=== PATIENT | male | born 1970 | race African-American/Black ===

== ENCOUNTER 2016-08-27 08:57 | Inpatient (IN) | payer OTHER ==
[2016-08-27 10:20] VITALS: BMI 29.7
--- NOTE | 2016-08-27 11:48 | HP ---
CIWA Score - CIWA Score Nausea/Vomitin-No Nausea/No Vomiting Muscle Tremors: 4-Moderate,w/Arms Extend Anxiety: 4-Mod. Anxious/Guarded Agitation: 4-Moderately Restless Paroxysmal Sweats: 1-Minimal Palms Moist Orientation: 0-Oriented Tacttile Disturbances: 3-Moderate Itch/Numb/Burn Auditory Disturbances: 0-None Visual Disturbances: 0-None Headache: 0-None Present CIWA-Ar Total Score: 16 Admission ROS BHS - HPI Chief Complaint: DETOX TX FOR ALCOHOL DEPENDENCE Allergies/Adverse Reactions: Allergies Allergy/AdvReac Type Severity Reaction Status Date / Time No Known Allergies Allergy Verified 08/27/16 11:12 History of Present Illness: 46 Y/O AA/MALE WITH A HX OF ALCOHOL,COCAINE AND MARIJUANA DEPENDENCE SEEKING DETOX TX Exam Limitations: No Limitations - Ebola screening Have you traveled outside of the country in the last 21 days: No Have you had contact with anyone from an Ebola affected area: No Have you been sick,other than usual withdrawal symptoms: No - Review of Systems Constitutional: Chills, Loss of Appetite, Night Sweats, Unintentional Wgt. Loss (LOST 20 - 25 LBS) EENT: reports: Blurred Vision, Tearing, Nose Congestion, Dental Problems ( MISSING TEETH) Respiratory: reports: No Symptoms reported Cardiac: reports: Lightheadedness GI: reports: Diarrhea, Nausea, Poor Appetite, Poor Fluid Intake, Vomiting : reports: No Symptoms Reported Musculoskeletal: reports: Back Pain, Joint Pain, Muscle Pain Integumentary: reports: Rash (FOOT RASH) Neuro: reports: Unsteady Gait Endocrine: reports: No Symptoms Reported Hematology: reports: No Symptoms Reported Psychiatric: reports: Orientated x3, Anxious, Depressed (WAS O MED BUT STOPPED) Other Systems: Reviewed and Negative Patient History - Patient Medical History Hx Anemia: No Hx Asthma: No Hx Chronic Obstructive Pulmonary Disease (COPD): No Hx Cardiac Disorders: No Hx Hypertension: No Hx Hypercholesterolemia: No HX Cerebrovascular Accident: No Hx Seizures: No Hx Diabetes: No Hx Gastrointestinal Disorders: No Hx Genitourinary Disorders: No Hx Sexually Transmitted Disorders: Yes (gonorrhea) Hx Renal Disease (ESRD): No Hx Thyroid Disease: No Hx Human Immunodeficiency Virus (HIV): No (NEGATIVE HX) Hx Depression: Yes (WAS ON MED--TRAZODONE AND REMERON) Hx Suicide Attempt: No (DENIES) Hx Schizophrenia: Yes - Patient Surgical History Past Surgical History: No Hx Neurologic Surgery: No Hx Cataract Extraction: No Hx Cardiac Surgery: No Hx Lung Surgery: No Hx Breast Surgery: No Hx Breast Biopsy: No Hx Abdominal Surgery: No Hx Appendectomy: No Hx Cholecystectomy: No Hx Genitourinary Surgery: No Hx Orthopedic Surgery: No Anesthesia Reaction: No - PPD History Previous Implant?: Yes Documented Results: Negative w/o proof Implanted On Prior [facility] Admission?: No PPD to be Administered?: Yes - Reproductive History Patient is a Female of Child Bearing Age (11 -55 yrs old): No (MALE) - Smoking Cessation Smoking history: Current every day smoker Have you smoked in the past 12 months: Yes Aproximately how many cigarettes per day: 10 Hx Chewing Tobacco Use: No Initiated information on smoking cessation: Yes 'Breaking Loose' booklet given: 08/27/16 - Substance & Tx. History Hx Alcohol Use: Yes (BEER) Hx Substance Use: Yes (CRACK/MARIJUANA) Substance Use Type: Alcohol, Cocaine, Marijuana Hx Substance Use Treatment: Yes ([facility] DETOX) - Substances Abused Crack Route: Smoking Frequency: Daily Amount used: 17 Date of Last Use: 08/27/16 Alcohol-beer Route: Oral Frequency: Daily Amount used: 2-6 pks. Age of first use: 15 Date of Last Use: 08/26/16 Family Disease History - Family Disease History Family Disease History: Diabetes: Mother (HTN), Other: Father (HEROIN ADDICTION- ), Mother Admission Physical Exam BHS - Vital Signs Vital Signs: Vital Signs - 24 hr 08/27/16 10:18 Temperature 97 F L Pulse Rate 84 Respiratory 19 Rate Blood Pressure 131/82 - Physical General Appearance: Yes: Moderate Distress, Irritable, Anxious HEENTM: Yes: EOMI, Normocephalic, PATRICIA, Pharynx Normal Respiratory: Yes: Chest Non-Tender, Lungs Clear, Normal Breath Sounds, No Respiratory Distress Neck: Yes: Supple, Trachea in good position Breast: Yes: Breast Exam Deferred Cardiology: Yes: Regular Rhythm, Regular Rate, S1, S2 Abdominal: Yes: Normal Bowel Sounds, Non Tender, Soft Genitourinary: Yes: Other (N/C) Back: Yes: Within Normal Limits Musculoskeletal: Yes: full range of Motion, Gait Steady Neurological: Yes: automat watcher II-XII NML intact, Fully Oriented, Alert, Motor Strength 5/5 Integumentary: Yes: Dry, Warm Lymphatic: Yes: Within Normal Limits - Diagnostic (1) Alcohol dependence with uncomplicated withdrawal Current Visit: Yes Status: Acute (2) Cocaine dependence, uncomplicated Current Visit: Yes Status: Acute Cleared for Admission [facility] - Detox or Rehab [facility] Level of Care: Medically Managed Detox Regimen/Protocol: Librium [facility] Breath Alcohol Content Breath Alcohol Content: 0 Urine Drug Screen - Results Drug Screen Negative: No Urine Drug Screen Results: CHILO-Cocaine
[2016-08-27] MEDS ORDERED: MENTHOL/PHENOL 1 EACH UD MM PRN (12:00)
[2016-08-27] MEDS ORDERED: MAG HYDROX/AL HYDROX/SIMETH 30 ML UNIT-DOSE CUP PO PRN (12:00)
[2016-08-27] MEDS ORDERED: MAGNESIUM CITRATE 300 ML BOTTLE PO PRN (12:00)
[2016-08-27] MEDS ORDERED: chlordiazePOXIDE HCL 25 MG CAPSULE PO PRN (12:00)
[2016-08-27] MEDS ORDERED: MAGNESIUM HYDROX 2400MG/30ML ORAL SUSPENSION 30 ML CUP PO PRN (12:00)
[2016-08-27] MEDS ORDERED: ACETAMINOPHEN 325 MG TABLET (FP) PO PRN (12:00)
[2016-08-27] MEDS ORDERED: diphenhydrAMINE HCL 50 MG CAPSULE PO PRN (12:00)
[2016-08-27] MEDS ORDERED: IBUPROFEN 400 MG TABLET (FP) PO PRN (12:00)
[2016-08-27] MEDS ORDERED: LOPERAMIDE HCL 2 MG CAPSULE PO PRN (12:00)
[2016-08-27] MEDS ORDERED: guaiFENesin/D-METHORPHAN HB 10 ML UNIT-DOSE CUPS PO PRN (12:00)
[2016-08-27] MEDS ORDERED: hydrOXYzine PAMOATE 25 MG CAPSULE (FP) PO PRN (12:00)
[2016-08-27] MEDS ORDERED: P-EPHED 60MG/TRIPROLIDI 2.5MG TABLET PO PRN (12:00)
[2016-08-27] MEDS: NICOTINE 14 MG/24 HOURS TOPICAL PATCH TD SCH (13:33)
--- NOTE | 2016-08-27 15:43 | EKG ---
Test Reason : Blood Pressure : / mmHG Vent. Rate : 072 BPM Atrial Rate : 072 BPM P-R Int : 120 ms QRS Dur : 086 ms QT Int : 396 ms P-R-T Axes : 072 053 037 degrees QTc Int : 433 ms NORMAL SINUS RHYTHM POSSIBLE LEFT ATRIAL ENLARGEMENT BORDERLINE ECG NO PREVIOUS ECGS AVAILABLE Confirmed by HUANG RIVERA, NATHAN ([id number]) on 08/27/2016 3:43:22 PM Referred By: Confirmed By:NATHAN ENCINAS MD
[2016-08-27 17:33] LABS: URINE APPEARANCE CLEAR; URINE BILIRUBIN NEGATIVE (NEGATIVE); URINE BLOOD NEGATIVE (NEGATIVE); URINE COLOR YELLOW; URINE GLUCOSE (UA) NEGATIVE (NEGATIVE); URINE KETONE TRACE (NEGATIVE); URINE LEUK ESTERASE NEGATIVE (NEGATIVE); URINE NITRITE NEGATIVE (NEGATIVE); URINE PROTEIN NEGATIVE (NEGATIVE); URINE UROBILINOGEN 4.0 E.U/dl E.U./dl (0.2-1.0)
[2016-08-27] MEDS: chlordiazePOXIDE HCL 25 MG CAPSULE PO SCH ×2 (17:40→22:36)
[2016-08-27] MEDS: NICOTINE POLACRILEX 2 MG GUM BUC PRN ×2 (17:42→22:31)
[2016-08-27] MEDS: THIAMINE HCL 100 MG TABLET (FP) PO SCH (22:30)
[2016-08-28] MEDS: chlordiazePOXIDE HCL 25 MG CAPSULE PO SCH ×4 (06:10→22:42)
[2016-08-28] MEDS: NICOTINE POLACRILEX 2 MG GUM BUC PRN ×4 (06:14→22:45)
[2016-08-28 09:18] LABS: HIV 1 & 2 AB NEGATIVE; HIV 1 AGp24 NEGATIVE
[2016-08-28 10:11] LABS: ALBUMIN 4.1 g/dl (3.4-5.0); BILIRUBIN,TOTAL 0.6 mg/dL (0.2-1.0); COCKROFT - GAULT 89.77; CREATININE 1.5 mg/dL (0.7-1.3); TOT PROT 7.4 g/dl (6.4-8.2)
[2016-08-28 10:14] LABS: MCH 33.1 pg (25.7-33.7); MEAN CELL VOLUME 97.5 fl (80-96); MEAN PLT VOLUME 9.9 fl (7.5-11.1); PLATELET COUNT 215 K/MM3 (134-434); RDW 13.3 % (11.9-15.9); WHITE BLOOD COUNT 6.6 K/mm3 (4.0-10.0)
[2016-08-28] MEDS: PRENATAL VITAMINS W/ FOLIC ACID TABLET (FP) PO SCH (10:25)
[2016-08-28 10:28] LABS: SICKLE CELL SCREEN NEGATIVE (NEGATIVE)
[2016-08-28] MEDS: NICOTINE 14 MG/24 HOURS TOPICAL PATCH TD SCH (10:28)
--- NOTE | 2016-08-28 11:53 | PN ---
[facility] CIWA - CIWA Score Nausea/Vomitin-No Nausea/No Vomiting Muscle Tremors: 4-Moderate,w/Arms Extend Anxiety: 4-Mod. Anxious/Guarded Agitation: 4-Moderately Restless Paroxysmal Sweats: 1-Minimal Palms Moist Orientation: 0-Oriented Tacttile Disturbances: 3-Moderate Itch/Numb/Burn Auditory Disturbances: 0-None Visual Disturbances: 0-None Headache: 0-None Present CIWA-Ar Total Score: 16 BHS Progress Note (SOAP) Subjective: ANXIETY,SWEATS,TREMORS, INTERMITTENT SLEEP. Objective: 08/28/16 11:52 Vital Signs Temperature 96.6 F L 08/28/16 10:21 Pulse Rate 74 08/28/16 10:21 Respiratory Rate 18 08/28/16 10:21 Blood Pressure 141/94 08/28/16 10:21 O2 Sat by Pulse Oximetry (%) Laboratory Last Values WBC 6.6 K/mm3 (4.0-10.0) 08/28/16 06:00 RBC 4.74 M/mm3 (4.00-5.60) 08/28/16 06:00 Hgb 15.7 GM/dL (11.7-16.9) 08/28/16 06:00 Hct 46.2 % (35.4-49) 08/28/16 06:00 MCV 97.5 fl (80-96) H 08/28/16 06:00 MCHC 34.0 g/dl (32.0-35.9) 08/28/16 06:00 RDW 13.3 % (11.9-15.9) 08/28/16 06:00 Plt Count 215 K/MM3 (134-434) 08/28/16 06:00 MPV 9.9 fl (7.5-11.1) 08/28/16 06:00 Sickle Cell Screen Negative (NEGATIVE) 08/28/16 06:00 Sodium 142 mmol/L (136-145) 08/28/16 06:00 Potassium 3.9 mmol/L (3.5-5.1) 08/28/16 06:00 Chloride 108 mmol/L (98-107) H 08/28/16 06:00 Carbon Dioxide 26 mmol/L (21-32) 08/28/16 06:00 Anion Gap 8 (8-16) 08/28/16 06:00 BUN 12 mg/dL (7-18) 08/28/16 06:00 Creatinine 1.5 mg/dL (0.7-1.3) H 08/28/16 06:00 Creat Clearance w eGFR 50.61 (>60) 08/28/16 06:00 Random Glucose 86 mg/dL (74-106) 08/28/16 06:00 Calcium 9.0 mg/dL (8.5-10.1) 08/28/16 06:00 Total Bilirubin 0.6 mg/dL (0.2-1.0) 08/28/16 06:00 AST 24 U/L (15-37) 08/28/16 06:00 ALT 32 U/L (12-78) 08/28/16 06:00 Alkaline Phosphatase 80 U/L (45-117) 08/28/16 06:00 Total Protein 7.4 g/dl (6.4-8.2) 08/28/16 06:00 Albumin 4.1 g/dl (3.4-5.0) 08/28/16 06:00 Urine Color Yellow 08/27/16 15:00 Urine Appearance Clear 08/27/16 15:00 Urine pH 5.0 (5.0-8.0) 08/27/16 15:00 Ur Specific [place] 1.024 (1.001-1.035) 08/27/16 15:00 Urine Protein Negative (NEGATIVE) 08/27/16 15:00 Urine Glucose (UA) Negative (NEGATIVE) 08/27/16 15:00 Urine Ketones Trace (NEGATIVE) H 08/27/16 15:00 Urine Blood Negative (NEGATIVE) 08/27/16 15:00 Urine Nitrite Negative (NEGATIVE) 08/27/16 15:00 Urine Bilirubin Negative (NEGATIVE) 08/27/16 15:00 Urine Urobilinogen 4.0 e.u/dl E.U./dl (0.2-1.0) 08/27/16 15:00 Ur Leukocyte Esterase Negative (NEGATIVE) 08/27/16 15:00 HIV 1&2 Antibody Screen Negative 08/27/16 10:00 HIV P24 Antigen Negative 08/27/16 10:00 Assessment: 08/28/16 11:53 WITHDRAWAL SX Plan: CONTINUE DETOX
--- NOTE | 2016-08-28 14:06 | CONSULT ---
[facility] Psychiatric Consult - Data Date of interview: 08/28/16 Admission source: [facility] Identifying data: First admission to [facility] for this 46 y/o AA male seeking detox for alcohol,cocaine and cannabis dependence.Patient is single,a father of one,domiciled,unemployed and supported on Public Assistance. Substance Abuse History: - Smoking Cessation. Smoking history: Current every day smoker. Have you smoked in the past 12 months: Yes. Aproximately how many cigarettes per day: 10. Hx Chewing Tobacco Use: No. Initiated information on smoking cessation: Yes. 'Breaking Loose' booklet given: 08/27/16. - Substance & Tx. History. Hx Alcohol Use: Yes (BEER). Hx Substance Use: Yes (CRACK/ MARIJUANA). Substance Use Type: Alcohol, Cocaine, Marijuana. Hx Substance Use Treatment: Yes ([facility] DETOX). - Substances Abused. Crack. Route : Smoking. Frequency: Daily. Amount used: 17. Date of Last Use: 08/27/16. * * Alcohol-beer. Route: Oral. Frequency: Daily. Amount used: 2-6 pks. Age of first use: 15. Date of Last Use: 08/26/16. Confirmed by patient. Medical History: No medical problems reported.Noted history of past treatment for gonorrhea. Psychiatric History: Patient denies history of psychiatric hospitalizations.Diagnosed with insomnia and prescribed remeron/trazodone.Doses not recalled by the patient.Not a reliable historian due to a light sedated state.No report of OPD care.Mr Cantu denies history of suicide attempts. Physical/Sexual Abuse/Trauma History: Patient denies. Additional Comment: Urine Drug Screen Results: CHILO-Cocaine.Noted. Mental Status Exam - Mental Status Exam Alert and Oriented to: Time, Place, Person Cognitive Function: Good Patient Appearance: Well Groomed Mood: Withdrawn Affect: Mood Congruent Patient Behavior: Sedated (light sedation.), Fatigued Speech Pattern: Delayed, Slurred Voice Loudness: Normal Thought Process: Goal Oriented Thought Disorder: Not Present Hallucinations: Denies Suicidal Ideation: Denies Homicidal Ideation: Denies Insight/Judgement: Poor Sleep: Fair Appetite: Good Muscle strength/Tone: Normal Gait/Station: Normal (observed walking earlier) Psychiatric Findings - Problem List ([place] 1, 2,3) (1) Alcohol dependence with uncomplicated withdrawal Current Visit: Yes Status: Acute (2) Cocaine dependence, uncomplicated Current Visit: Yes Status: Acute (3) Nicotine dependence Current Visit: Yes Status: Acute (4) Insomnia Current Visit: Yes Status: Acute - Initial Treatment Plan Initial Treatment Plan: Psychoeducation.Detoxification.Trazodone 50 mg po hs.Patient is made aware of the risk of priapism.No prior history of adverse event from this medication,according to patient.Agreement (verbal) given for treatment with trazodone.Observation.Review of pharmacy claims : no activity.Reconciliation indicates no home medications.
[2016-08-28] MEDS ORDERED: traZODone HCL 50 MG TABLET (FP) PO SCH (22:00)
[2016-08-28] MEDS: THIAMINE HCL 100 MG TABLET (FP) PO SCH (22:42)
[2016-08-29] MEDS: chlordiazePOXIDE HCL 25 MG CAPSULE PO SCH ×2 (07:12→10:51)
[2016-08-29] MEDS: PRENATAL VITAMINS W/ FOLIC ACID TABLET (FP) PO SCH (10:51)
[2016-08-29] MEDS: NICOTINE 14 MG/24 HOURS TOPICAL PATCH TD SCH (10:51)
[2016-08-29] MEDS: NICOTINE POLACRILEX 2 MG GUM BUC PRN (10:52)
--- NOTE | 2016-08-29 16:16 | PN ---
S CIWA - CIWA Score Nausea/Vomitin Muscle Tremors: 3 Anxiety: 4-Mod. Anxious/Guarded Agitation: 3 Paroxysmal Sweats: 3 Orientation: 0-Oriented Tacttile Disturbances: 3-Moderate Itch/Numb/Burn Auditory Disturbances: 1-Very Mild Visual Disturbances: 0-None Headache: 0-None Present CIWA-Ar Total Score: 19 S Progress Note (SOAP) Subjective: Diarrhea, Body Aches, Stomach Cramping, Sweating. Objective: PT. A & O X 3, OBSERVED AMBULATING ON UNIT. 08/29/16 16:15 Vital Signs Temperature 96 F L 08/29/16 13:41 Pulse Rate 77 08/29/16 13:41 Respiratory Rate 20 08/29/16 13:41 Blood Pressure 140/86 08/29/16 13:41 O2 Sat by Pulse Oximetry (%) Laboratory Last Values WBC 6.6 K/mm3 (4.0-10.0) 08/28/16 06:00 RBC 4.74 M/mm3 (4.00-5.60) 08/28/16 06:00 Hgb 15.7 GM/dL (11.7-16.9) 08/28/16 06:00 Hct 46.2 % (35.4-49) 08/28/16 06:00 MCV 97.5 fl (80-96) H 08/28/16 06:00 MCHC 34.0 g/dl (32.0-35.9) 08/28/16 06:00 RDW 13.3 % (11.9-15.9) 08/28/16 06:00 Plt Count 215 K/MM3 (134-434) 08/28/16 06:00 MPV 9.9 fl (7.5-11.1) 08/28/16 06:00 Sickle Cell Screen Negative (NEGATIVE) 08/28/16 06:00 Sodium 142 mmol/L (136-145) 08/28/16 06:00 Potassium 3.9 mmol/L (3.5-5.1) 08/28/16 06:00 Chloride 108 mmol/L (98-107) H 08/28/16 06:00 Carbon Dioxide 26 mmol/L (21-32) 08/28/16 06:00 Anion Gap 8 (8-16) 08/28/16 06:00 BUN 12 mg/dL (7-18) 08/28/16 06:00 Creatinine 1.5 mg/dL (0.7-1.3) H 08/28/16 06:00 Creat Clearance w eGFR 50.61 (>60) 08/28/16 06:00 Random Glucose 86 mg/dL (74-106) 08/28/16 06:00 Calcium 9.0 mg/dL (8.5-10.1) 08/28/16 06:00 Total Bilirubin 0.6 mg/dL (0.2-1.0) 08/28/16 06:00 AST 24 U/L (15-37) 08/28/16 06:00 ALT 32 U/L (12-78) 08/28/16 06:00 Alkaline Phosphatase 80 U/L (45-117) 08/28/16 06:00 Total Protein 7.4 g/dl (6.4-8.2) 08/28/16 06:00 Albumin 4.1 g/dl (3.4-5.0) 08/28/16 06:00 Urine Color Yellow 08/27/16 15:00 Urine Appearance Clear 08/27/16 15:00 Urine pH 5.0 (5.0-8.0) 08/27/16 15:00 Ur Specific [place] 1.024 (1.001-1.035) 08/27/16 15:00 Urine Protein Negative (NEGATIVE) 08/27/16 15:00 Urine Glucose (UA) Negative (NEGATIVE) 08/27/16 15:00 Urine Ketones Trace (NEGATIVE) H 08/27/16 15:00 Urine Blood Negative (NEGATIVE) 08/27/16 15:00 Urine Nitrite Negative (NEGATIVE) 08/27/16 15:00 Urine Bilirubin Negative (NEGATIVE) 08/27/16 15:00 Urine Urobilinogen 4.0 e.u/dl E.U./dl (0.2-1.0) 08/27/16 15:00 Ur Leukocyte Esterase Negative (NEGATIVE) 08/27/16 15:00 RPR Titer Nonreactive (NONREACTIVE) 08/28/16 06:00 HIV 1&2 Antibody Screen Negative 08/27/16 10:00 HIV P24 Antigen Negative 08/27/16 10:00 LABS NOTED. Assessment: 08/29/16 16:16 WITHDRAWAL SYMPTOMS. Plan: CONTINUE DETOX. ADVISED PATIENT TO FOLLOW-UP WITH [facility] / REHAB MEDICAL PROVIDER AFTER DISCHARGE FROM DETOX FOR GENERAL MEDICAL ASSESSMENT AND FOR ABNORMAL ADMISSION LAB VALUES.
[2016-08-29] MEDS ORDERED: chlordiazePOXIDE 5 MG CAPSULE PO SCH (17:00)
[2016-08-29 18:06] VITALS: BP 115/75; PULSE 80; TEMP 96.8
--- NOTE | 2016-08-29 19:01 | PN ---
S Progress Note Note: patient did not want to complete treatment,signed release ama,did not want to wait
--- NOTE | 2016-08-29 19:05 | DS ---
[facility] Detox Discharge Summary Admission Date: 08/27/16 Discharge Date: 08/29/16 - History Present History: Alcohol Dependence, Cocaine Dependence Additional Comments: patient did not want to complete treatment,signed release ama,did not want to wait Pertinent Past History: nicotine dependence - Physical Exam Results Vital Signs: Vital Signs Temperature 96.8 F L 08/29/16 18:06 Pulse Rate 80 08/29/16 18:06 Respiratory Rate 20 08/29/16 18:06 Blood Pressure 115/75 08/29/16 18:06 O2 Sat by Pulse Oximetry (%) Pertinent Admission Physical Exam Findings: withdrawal symptom - Diagnosis (1) Alcohol dependence with uncomplicated withdrawal Current Visit: Yes Status: Acute (2) Cocaine dependence, uncomplicated Current Visit: Yes Status: Acute (3) Insomnia Current Visit: Yes Status: Acute (4) Nicotine dependence Current Visit: Yes Status: Acute - AMA Did Patient Leave Against Medical Advice: Yes
[2016-08-30] MEDS ORDERED: chlordiazePOXIDE HCL 10 MG CAPSULE PO SCH (17:00)
== END 2016-08-29 18:25 | disposition left against medical advice (07) | DRG 770 ==
LOC: YASAS 08:57 → Y3N 12:34
PROVIDERS: ADMIT Internal Medicine; ATTEND Internal Medicine
PROC: HZ2ZZZZ Detoxification Services for Substance Abuse Treatment (ICD-10-PCS; principal; 2016-08-27)
DX: F10.230 Alcohol dependence with withdrawal, uncomplicated (principal); F14.20 Cocaine dependence, uncomplicated; F17.210 Nicotine dependence, cigarettes, uncomplicated; G47.00 Insomnia, unspecified; Z87.438 Personal history of other diseases of male genital organs; Z59.0 Homelessness
CPT/HCPCS: 36415; 80053; 81003; 85027; 85660; 86593; 87389; 93005; 93010